=== PATIENT | male | born 1970 | race Caucasian/White ===

== ENCOUNTER 2016-12-24 14:26 | Emergency (ER) | payer OTHER | END 2016-12-24 15:50 | disposition home or self-care (01) | LOC: ER 14:26 | DX: J18.9 Pneumonia, unspecified organism (principal); F41.9 Anxiety disorder, unspecified; G43.909 Migraine, unspecified, not intractable, without status migrainosus; F17.200 Nicotine dependence, unspecified, uncomplicated; Z86.73 Personal history of transient ischemic attack (TIA), and cerebral infarction without residual deficits; Z79.899 Other long term (current) drug therapy; Z88.0 Allergy status to penicillin | CPT/HCPCS: 36415; 87502 ==

== ENCOUNTER → 2017-03-15 | Day surgery (SDC) | payer OTHER | END | disposition home or self-care (01) | LOC: SDCH 06:57 | DX: K29.50 Unspecified chronic gastritis without bleeding (principal); K20.0 Eosinophilic esophagitis; K44.9 Diaphragmatic hernia without obstruction or gangrene; I10 Essential (primary) hypertension; Z88.0 Allergy status to penicillin; Z88.8 Allergy status to other drugs, medicaments and biological substances; Z87.01 Personal history of pneumonia (recurrent); Z86.69 Personal history of other diseases of the nervous system and sense organs | CPT/HCPCS: J2704 ==

== ENCOUNTER → 2017-04-07 | Day surgery (SDC) | payer OTHER | END | disposition home or self-care (01) | LOC: SDC 11:32 | DX: K81.1 Chronic cholecystitis (principal); K82.8 Other specified diseases of gallbladder; R51 Headache; M54.9 Dorsalgia, unspecified; M25.50 Pain in unspecified joint; Z88.0 Allergy status to penicillin; Z88.8 Allergy status to other drugs, medicaments and biological substances; Z79.899 Other long term (current) drug therapy; K21.9 Gastro-esophageal reflux disease without esophagitis; Z86.73 Personal history of transient ischemic attack (TIA), and cerebral infarction without residual deficits; F41.9 Anxiety disorder, unspecified; F32.9 Major depressive disorder, single episode, unspecified; E66.3 Overweight; F17.200 Nicotine dependence, unspecified, uncomplicated | CPT/HCPCS: C1894; J1885; J2704; J2765; Q9967 ==